=== PATIENT | female | born 1950 | race Caucasian/White ===

== ENCOUNTER 2017-05-15 02:40 | Emergency (ER) | payer OTHER, MEDICARE ==
[~2017-05-15] VITALS: Ht 170.2 cm; Wt 52.0 kg
[~2017-05-15 02:40] MED LIST: FEXO180 PO; FOLI800T12 PO; FOSA70TA PO; MELO7.5 PO; METH2.5 PO; METO50TA PO; PANC4200 PO; RANI150 PO; ULTR50TA PO
[2017-05-15] MEDS ORDERED: CITRTAB13 (02:57)
[2017-05-15] MEDS ORDERED: FERR325C PO (02:57)
[2017-05-15 03:03] VITALS: BP 141/70; PULSE 55; RESP 20; TEMP 98.8; O2SAT 100
[2017-05-15 04:00] VITALS: BP 152/84; PULSE 52; RESP 16; O2SAT 99
[2017-05-15] MEDS ORDERED: MORPHINE SULFATE 4 MG/ML INJ IV PUSH ONE (04:00)
--- NOTE | 2017-05-15 04:01 | RADRPT ---
EXAM DATE/TIME: 05/15/2017 03:39 [place] COMPARISON: No previous studies available for comparison. INDICATIONS : Right shoulder pain post fall. MEDICAL HISTORY : None. SURGICAL HISTORY : None. ENCOUNTER: Initial ACUITY: 1 day PAIN SCORE: 10/10 LOCATION: Right upper extremity FINDINGS: There is a mildly displaced and angulated impacted fracture of the proximal right humerus with impact ion of the shaft into the anatomic head. The head remains grossly situated over the bony glenoid. The adjacent clavicle and ribs appear intact. CONCLUSION: Impacted proximal right humeral neck fracture Cabrera Cunningham MD on May 15, 2017 at 3:58 Board Certified Radiologist. This report was verified electronically.
[2017-05-15] MEDS ORDERED: ZOFR4TAB PO (04:08)
[2017-05-15] MEDS ORDERED: PERC5TAB12 PO (04:08)
--- NOTE | 2017-05-15 04:16 | PD ---
HPI Chief Complaint: Pain: Acute or Chronic Time Seen by Provider: 03:06 Travel History International Travel<30 days: No Contact w/Intl Traveler<30days: No Traveled to known affect area: No History of Present Illness HPI 66-year-old female presents to the emergency department by EMS transport from home for complaint of severe shoulder pain. Patient was up out of bed to go to the bathroom and as she return to the bathroom she tripped on the right and collided with the bathroom door she did hit her head against the bathroom door but then lost her balance trying to protect her fall she injured her right shoulder. Patient did not hit her head subsequently on the floor did not have loss of consciousness did not injure her neck back chest ribs abdomen pelvis or other extremities. Pain is confined to the right shoulder. Patient denies any numbness tingling or weakness. No previous shoulder injury. Patient is followed by Dr. Shields for previous left hip fracture repair several years ago. Patient has osteoporosis, osteopenia, osteoarthritis and rheumatoid arthritis. Patient rates her pain 8/10 in intensity. Movement increases pain remaining still provided some relief of symptoms. Patient is right-handed. Patient takes no blood thinning agents. PFSH Past Medical History Narrative Medical Rheumatoid arthritis pancreatic cancer anemia/arthritis osteoporosis Whipple procedure for pancreatic cancer cholecystectomy; no alcohol use tobacco use or substance use; nursing notes reviewed Arthritis: Yes (RA AND OSTEO ARTHRITIS) Autoimmune Disease: Yes (Rheumatoid Arthritis) Blood Disorders: No Cancer: Yes (PANCREATIC CANCER RESECTION -[facility] 2002) Cardiovascular Problems: Yes (LOW BP/HR, Anemia) Chemotherapy: No Endocrine: No GERD: Yes Musculoskeletal: Yes (Osteoarthritis) Psychiatric: No Respiratory: No Radiation Therapy: No ?: Not Past Surgical History Abdominal Surgery: Yes ([facility]IPPLE IN 2002) Cholecystectomy: Yes Genitourinary Surgery: Yes ([facility] 2002 for Pancreatic CA) Social History Alcohol Use: No Tobacco Use: No Substance Use: No Allergies-Medications (Allergen,Severity, Reaction): Coded Allergies: codeine (Unverified Allergy, Severe, SHAKING, 03/19/17) Reported Meds & Prescriptions Reported Meds & Active Scripts Active Percocet (Oxycodone-Acetaminophen) 5-325 mg Tab 1 Tab PO Q6H PRN Zofran (Ondansetron HCl) 4 Mg Tab 4 Mg PO Q6HR PRN Reported Citracal Plus (Multiple Minerals W/ Vitamins) 250-40-125 Tab Iron (Ferrous Sulfate) 325 Mg Cap 325 Mg PO DAILY Folate (Folic Acid) 800 Mcg Tab 800 Mcg PO DAILY Zantac (Ranitidine HCl) 150 Mg Tab 150 Mg PO DAILY Mobic 7.5 Mg Tab (Meloxicam) 7.5 Mg Tab 7.5 Mg PO DAILY Metoprolol Tartrate 50 mg (Metoprolol Tartrate) 50 Mg Tab 50 Mg PO DAILY Pancreaze (Pancreatic Enzymes) 4,200 Unit Cap 4,200 Unit PO 6 A DAY Review of Systems Except as stated in HPI: all other systems reviewed are Neg General / Constitutional: No: Fever, Chills HENT: No: Headaches, Congestion, Neck Stiffness, Neck Pain Cardiovascular: No: Chest Pain or Discomfort Respiratory: No: Shortness of Breath, Pleuritic Pain Gastrointestinal: No: Nausea, Vomiting, Abdominal Pain Genitourinary: No: Pelvic Pain, Flank Pain Musculoskeletal: Positive: Limited ROM (right shoulder), Pain (right shoulder) , No: Myalgias, Arthralgias Skin: No Rash Neurologic: No: Weakness Psychiatric: No: Anxiety Hematologic/Lymphatic: No: Lymph Node Enlargement Physical Exam Narrative GENERAL: Well-developed well-nourished frail female in no acute distress no respiratory distress; GCS 15 SKIN: Warm and dry. HEAD: Normocephalic. Atraumatic no palpable soft tissue swelling bony abnormality ecchymosis abrasion or laceration. EYES: No scleral icterus. Extraocular muscles intact. Pupils equal round reactive to light. No injection or drainage. NECK: Supple, trachea midline. No JVD or lymphadenopathy. No midline tenderness to direct palpation along the cervical spine no bony step-off. CARDIOVASCULAR: Regular rate and rhythm without murmurs, gallops, or rubs. Chest wall: Nontender to palpation. RESPIRATORY: Breath sounds equal bilaterally. No accessory muscle use. GASTROINTESTINAL: Abdomen soft, non-tender, nondistended. MUSCULOSKELETAL: No cyanosis, or edema. Patient with right shoulder deformity consistent with probable fracture possible subluxation; distally extremity is neurovascular tendon intact with brisk capillary refill less than 2 seconds per digit radial and ulnar pulses are 2+ to palpation. No wrist forearm or elbow deformity noted. BACK: Nontender without obvious deformity. No CVA tenderness. Data Data Last Documented VS Vital Signs Date Time Temp Pulse Resp B/P (MAP) Pulse Ox O2 Delivery O2 Flow Rate FiO2 05/15/17 04:35 54 18 122/63 (82) 100 05/15/17 04:00 Room Air 05/15/17 03:03 98.8 Orders Orders Ice/Cold Pack (05/15/17 03:28) NPO (05/15/17 03:28) Shoulder, Limited(2vws) (05/15/17 ) Morphine Inj (Morphine Inj) (05/15/17 04:00) Sling And Swathe (05/15/17 ) Splint Or Brace Apply/Monitor (05/15/17 04:02) Ed Discharge Order (05/15/17 04:23) Meloxicam (Mobic) (05/15/17 05:15) Oxycodone-Acetamin 5-325 Mg (Percocet (05/15/17 05:30) Ondansetron Odt (Zofran Odt) (05/15/17 05:30) Sling And Swathe (05/15/17 ) MDM Medical Decision Making Medical Screen Exam Complete: Yes Emergency Medical Condition: Yes Medical Record Reviewed: Yes Interpretation(s) right shoulder xr: FINDINGS: There is a mildly displaced and angulated impacted fracture of the proximal right humerus with impaction of the shaft into the anatomic head. The head remains grossly situated over the bony glenoid. The adjacent clavicle and ribs appear intact. CONCLUSION: Impacted proximal right humeral neck fracture Cabrera Cunningham MD on May 15, 2017 at 3:58 Board Certified Radiologist. This report was verified electronically. Differential Diagnosis Fracture, subluxation, dislocation, neurovascular tendon injury Narrative Course Patient with EMS sling in place imaging study order administered morphine sulfate 4 mg en route continues to complain of pain Ice pack applied and additional morphine sulfate 2 mg IV administered Imaging study shows humeral neck impacted fracture without obvious dislocation Sling and swath applied patient has orthopedist Dr. Shields patient is stable for outpatient follow-up with her orthopedist and will be provided prescription for Percocet which she is taking in the past without adverse reaction and as needed Zofran Patient was spouse at bedside is aware of imaging results and management plan as well as discharge recommendations Diagnosis Primary Impression: Shoulder fracture, right Qualified Codes: S42.91XA - Fracture of right shoulder girdle, part unspecified, initial encounter for closed fracture Referrals: Orthopedist 1 day Follow up with your orthopedist Dr Shields or with linen controller orthopedisit Dr Morales Patient Instructions: Narcotic given in the ED, General Instructions Additional Instructions: Ice pack intermittently to shoulder Wear sling and swath at all times Follow-up with orthopedist Return to the emergency department for any concerns or change in condition Take medications as prescribed as needed Med/Other Pt SpecificInfo: Prescription(s) given Scripts Oxycodone-Acetaminophen (Percocet) 5-325 mg Tab 1 TAB PO Q6H Y for PAIN, #12 TAB 0 Refills Prov: Catalina Olivera MD 05/15/17 Ondansetron (Zofran) 4 Mg Tab 4 MG PO Q6HR Y for NAUSEA OR VOMITING, #10 TAB 0 Refills Prov: Catalina Olivera MD 05/15/17 Disposition: 01 DISCHARGE HOME Condition: Stable (ERASED) Catalina Olievra MD May 15, 2017 04:16
[2017-05-15 04:35] VITALS: BP 122/63
[2017-05-15] MEDS ORDERED: MELOXICAM 7.5 MG TAB PO ONE (05:15)
[2017-05-15] MEDS ORDERED: KETOROLAC TROMETHAMINE 30 MG/ML (IVP) VIAL IV PUSH ONE (05:15)
[2017-05-15] MEDS ORDERED: ONDANSETRON ODT 4 MG TAB PO ONE (05:30)
[2017-05-15] MEDS ORDERED: oxyCODONE/ACETAMINOPHEN 5 MG/325 MG TAB PO ONE (05:30)
[2017-05-20] MEDS ORDERED: PANC4200 PO (07:37)
[2017-05-20] MEDS ORDERED: CALC1TAB34 PO (07:37)
[2017-05-20] MEDS ORDERED: MELO7.5T4 PO (07:37)
[2017-05-20] MEDS ORDERED: FE FCAP PO (07:37)
[2017-05-20] MEDS ORDERED: METO50TA PO (07:37)
[2017-05-20] MEDS ORDERED: RANI150T PO (07:37)
[2017-05-20] MEDS ORDERED: FOLI800T PO (07:37)
== END 2017-05-15 05:26 | disposition home or self-care (01) ==
LOC: NEPC 02:40
DX: S42.91XA Fracture of right shoulder girdle, part unspecified, initial encounter for closed fracture (principal); K21.9 Gastro-esophageal reflux disease without esophagitis; W01.198A Fall on same level from slipping, tripping and stumbling with subsequent striking against other object, initial encounter; M81.0 Age-related osteoporosis without current pathological fracture
CPT/HCPCS: 29240; 73030; 96374; 99284; J2270